=== PATIENT | female | born 1990 | race Caucasian/White ===

== ENCOUNTER 2018-03-28 13:35 | Emergency (ER) | payer OTHER | END 2018-03-28 14:52 | disposition home or self-care (01) | LOC: ER 13:35 | DX: M54.5 Low back pain (principal); G89.29 Other chronic pain; Z87.442 Personal history of urinary calculi; Z90.49 Acquired absence of other specified parts of digestive tract; V49.88XA Car occupant (driver) (passenger) injured in other specified transport accidents, initial encounter; Y93.89 Activity, other specified; Y99.8 Other external cause status; Y92.488 Other paved roadways as the place of occurrence of the external cause | CPT/HCPCS: 99283 ==